=== PATIENT | male | born 1990 | race Caucasian/White ===

== ENCOUNTER → 2024-08-14 | Outpatient (CLI) | payer BC ==
[2024-08-14 15:32] VITALS: BP 135/86; PULSE 92; RESP 16; TEMP 98.1
--- NOTE | 2024-08-14 16:06 | P.SLEEP ---
History of Present Illness DATE: 08/14/2024 CONSULTATION/NEW PATIENT EVALUATION HISTORY OF PRESENT ILLNESS/SLEEP-WAKE EVALUATION: 53-year-old gentleman had b een evaluated in the sleep center for possible obstructive sleep apnea hypopnea syndrome. SLEEP SCHEDULE: Usually sleep schedule from midnight until 9 AM on weekdays and until 910 AM on weekend. FALLING ASLEEP: Patient does have difficulties with falling asleep, has TV set in bedroom. DURING SLEEP: Patient sleeps on the side and stomach position with snoring, grinding teeth, episodes of palpitations, heartburn, restless leg sweating. No history of hypnogogical hallucinations, sleep paralysis, or cataplexy. DURING THE DAY/WAKE STATE: In the morning patient wake up tired, has difficulties to pay attention, has problems with memory, concentration, irritability and anxiety.. Kirkland sleepiness scale is 7. Patient does not take naps. PAST MEDICAL HISTORY: Fatty liver, anxiety. PAST SURGICAL HISTORY: Tonsillectomy and adenoidectomy. MEDICATIONS: None. SOCIAL HISTORY: Please see below. FAMILY HISTORY: Hypertension, sleep apnea, cancer, mental illness, diabetes. REVIEW OF SYSTEMS: Snoring. No fevers. No double vision. No recent chest pain. No shortness of breath. No abdominal pain. No bleeding episodes. No blood in urine. No seizure episodes. PHYSICAL EXAMINATION: GENERAL: A pleasant patient without any distress. VITAL SIGNS: Please see below, weight 223.2 pounds, BMI 35.7. HEENT: PERRLA, EOMI. Evaluation of oropharynx showed tongue protrudes midline, low position of soft palate Mallampati 3. NECK: Supple. No JVD. Thyroid is not palpable. 18 inches in circumference. LUNGS: Clear to percussion and to auscultation. Good air exchange. No wheezing or rhonchi. HEART: S1, S2 regular. No murmurs, gallops or rubs. ABDOMEN: Soft and nontender. Bowel sounds are present. No organomegaly appreciated. EXTREMITIES: No clubbing or cyanosis. SET AND EXHIBIT DESIGNER: Awake, alert, and oriented x3. Cranial nerves 2 to 7 intact. There is no fasciculation or atrophy noted. No focal deficits observed. ASSESSMENT: 1. Snoring, low position of soft palate Mallampati 3, wide neck 18 inches in circumference. Obstructive sleep apnea hypopnea syndrome. 2. Mild obesity BMI 35.7. 3. Restless leg symptoms. 4. Possible periodic limb movements. 5 fatty liver. 6 . Episodes of anxiety. 7. Status post tonsillectomy and adenoidectomy. PLAN: 1. Home sleep apnea test for evaluation of patient's breathing during sleep. 2. Following plan after reading sleep study. 3. Preferable position during sleep on the side. 4. No driving if patient feels any sleepiness. Patient is aware of civil and criminal liability for unsafe driving. 5. Sleep hygiene with regular sleep time for at least 7.5-8 hours. 6. Watching and losing weight. Thank you very much for referring this patient for consultation. Sincerely, Dwight Baumann MD, PhD, FAASM. Diplomat of [place] [employer], Sleep Medicine Board by [place] [employer] [employer] Finishing Lab Technician of [facility] [place] cc: Yumiko Peterson MD, Treva Damon [employer] Past Medical History Past Medical History: GERD/Reflux Additional Past Medical History / Comment(s): Anxiety, diverticulosis, high liver enzymes, snoring, restless legs. History of Any Multi-Drug Resistant Organisms: None Reported Past Surgical History: Adenoidectomy, Tonsillectomy Additional Past Surgical History / Comment(s): Colonoscopy Past Psychological History: Anxiety Smoking Status: Never smoker Past Alcohol Use History: Occasional Additional Past Alcohol Use History / Comment(s): Does use tobacco pouches to chew. Past Drug Use History: None Reported - Past Family History Mother Family Medical History: Hypertension Additional Family Medical History / Comment(s): Angina, anxiety, Physical Exam Vitals: Vital Signs Temp Pulse Resp BP Pulse Ox 08/14/24 15:30 98.1 F 92 16 135/86 96 Intake and Output 08/14/24 08/14/24 08/14/24 06:59 14:59 22:59 Other: Weight 101.208 kg Sleep Note - Sleep Data ESS Total: 7 - Sleep Note Sleep Note: Temperature: 98.1 F Pulse Rate: 92 Respiratory Rate: 16 Blood Pressure: 135/86 SpO2: 96 Height: 5 ft 6.2 in Weight: 101.208 kg BMI: Neck Circumference: 18
== END ==
LOC: 3 N SLEEP 15:03
PROVIDERS: ATTEND Internal Medicine
CPT/HCPCS: 99211

== ENCOUNTER → 2024-08-27 | Outpatient (CLI) | payer BC ==
--- NOTE | 2024-08-28 10:39 | P.PCN ---
Description of Procedure: CLINICAL: A home sleep apnea test has been done for confirmation of possible obstructive sleep apnea-hypopnea syndrome. DESCRIPTION OF PROCEDURE: RESULTS: Recording time was 6 hours 47 minutes. Evaluation time was 6 hours 37 minutes. Evaluation time is sufficient for making conclusion about results of the test. Raw data of sleep recording has been reviewed and is adequate. Respiratory channel showed 7 apneas and 56 hypopneas. Apnea-hypopnea index was 8.6 per hour. Pulse rate in the range between minimum 47, maximum 101, average 64 by computer calculation. Lowest desaturation was 86%. IMPRESSION: 1. Obstructive Sleep Apnea Hypopnea Syndrome in mild range, although home sleep apnea test may underestimate severity of sleep apnea. 2. Anxiety episodes. Please see other impressions from consultation. PLAN: 1. I will see patient for follow-up visit to discuss results of the test and following plan. 2. Sleep hygiene with regular time in bed for at least 8 hours. 3. Watching and losing weight. 4. No driving if feeling any sleepiness. Thank you very much for allowing me to participate in the management of your pa tient. Sincerely, Dwight Baumann MD, PhD, FAASM Diplomat of [place] [employer] Sleep Medicine Board of [place] [employer] Communication Lecturer of [facility] [place] cc: Yumiko Peterson MD, Marisol Michael
== END ==
LOC: 3 N SLEEP 10:46
PROVIDERS: ATTEND Internal Medicine

== ENCOUNTER → 2024-10-09 | Outpatient (CLI) | payer BC ==
--- NOTE | 2024-10-09 12:37 | P.PROGSL ---
Subjective DATE: 10/09/2024 FOLLOW UP VISIT. Patient returned to sleep center for follow-up visit to discuss results of home sleep apnea test and following plan. I discussed results of home sleep apnea test in details. Test showed apnea hypopnea index 8.6 with oxygen desaturation to 86%. Snoring have been documented during the test. Gilbert sleepiness scale is increased to 12, which is indicates sleepiness. Sometimes patient takes naps for 2 hours in the middle of the day. MEDICATIONS: None During physical exam: GENERAL: A pleasant patient without any distress. VITAL SIGNS: Please see below. HEENT: PERRLA, EOMI. NECK: Supple. No JVD. LUNGS: Clear to percussion and to auscultation. Good air exchange. No wheezing or rhonchi. HEART: S1, S2 regular. ABDOMEN: Soft and nontender. EXTREMITIES: No clubbing or cyanosis. CHIEF II DISPATCHER: Awake, alert, and oriented x3. No focal deficit. Impressions: 1. Snoring, awakenings from sleep. Obstructive sleep apnea hypopnea syndrome with apnea hypopnea index 8.6 by results of home sleep apnea test, which may underestimate severity of sleep apnea, respiratory events index 17.7. Patient has symptoms of excessive daytime sleepiness Gilbert Sleepiness Scale significantly increased to 12. 2. History of anxiety. 3. Fatty liver. 4. Restless leg symptoms and possibly periodic limb movements. 5. Status post tonsillectomy and adenoidectomy. Plan: 1. Patient will be started on treatment with AutoPap and should use equipment every night for the whole night 2. Sleep hygiene with regular time in bed for at least 8 hours. 3. I will see patient for follow-up visit to evaluate clinical response on treatment, compliance with treatment and [place] adjustments related to mask fitting pressure and humidification. 4. Precautions related to driving. No driving if feel any sleepiness. Patient is aware about civil and criminal liability for unsafe driving, promised to follow recommendations. 5. Follow up visit in 1-3 months after patient will get CPAP unit. Thank you very much for allowing me to participate in the management of your patient. Dwight Baumann MD, PhD, FAASM. Diplomat of [place] [employer], Sleep Medicine Board by [place] [employer] Orchid Transplanter of [facility] [place] cc: Yumiko Peterson MD
== END ==
LOC: 3 N SLEEP 11:40
PROVIDERS: ATTEND Internal Medicine
DX: G47.33 Obstructive sleep apnea (adult) (pediatric) (principal); G47.10 Hypersomnia, unspecified; F41.9 Anxiety disorder, unspecified; K76.0 Fatty (change of) liver, not elsewhere classified; G25.81 Restless legs syndrome; Z98.890 Other specified postprocedural states; Z90.89 Acquired absence of other organs
CPT/HCPCS: 99212

== ENCOUNTER → 2024-10-16 | Outpatient (CLI) | payer BC ==
--- NOTE | 2024-10-16 10:14 | CA ---
Exercise Stress Test Report Name: Booker Kitchen Exam Date: 10/16/2024 09:07 Exam Location: [facility] Stress Ht (in): 66 Wt (lb): 210 BSA: 2.04 Ordering Phys: Yumiko Peterson MD Referring Phys: Mraisol Tilley Technologist: Saul Stewart Age: 33 Gender: M : 1990 Procedure CPT: Indications: R55 Syncope ICD-10 Codes: Patient History: Medications: omeperazole Meds past 24 hrs: Pretest Chest Pain: STRESS TEST Federico Protocol Exercise Duration (min:sec): 09:[address] Depressions (mm): Angina Score: Malik Score: Resting HR (bpm): 105 Peak HR (bpm): 162 Resting BP (mmHg): 133 / 88 Peak BP (mmHg): 212 / 69 MPHR: 186 Target HR: 158 % MPHR: 87 METS: 11.2 Total Dose: Peak Dose: Atropine: Double Product: 96713 BP Response: Stress Termination: Reached target heart rate Stress Symptoms: No chest pain or symptoms Stress Summary: Echo patient exercised on a Federico protocol for 9 minutes 39 seconds achieving 11.2 METS. Patient was able to achieve 87% of age-predicted maximal heart rate. Patient not report any substernal chest pressure or significant shortness of breath with treadmill exercise protocol. The treadmill protocol was terminated because of achieving heart rate. ECG ANALYSIS Resting ECG: Normal sinus rhythm Stress ECG: No significant ST-T wave changes concerning of ischemia. No significant ectopic beats or arrhythmias noted during the stress test. CONCLUSIONS Overall normal treadmill echo stress test Good exercise tolerance achieving 11.2 METS Nonischemic ECG response to treadmill exercise Slightly hypertensive response to exercise, could be related to deconditioning. Dr Pradip Estrella (Electronically Signed) Final Date: 16 October 2024 10:13
== END | disposition home or self-care (01) ==
LOC: RADNMMAIN 08:26
PROVIDERS: ATTEND Family Medicine
DX: R55 Syncope and collapse (principal); I10 Essential (primary) hypertension
CPT/HCPCS: 93017

== ENCOUNTER → 2024-11-20 | Outpatient (CLI) | payer BC ==
--- NOTE | 2024-11-21 17:33 | US ---
EXAMINATION TYPE: US Aorta Screening DATE OF EXAM: 11/20/2024 COMPARISON: NONE CLINICAL INDICATION: Male, 33 years old with history of R22.1 Pulsatile mass; Pulsatile mass x 1 year . TECHNIQUE: Multiple sonographic images of the abdominal aorta are obtained with grayscale and color D oppler imaging. FINDINGS: EXAM MEASUREMENTS: Abdominal Aorta: Proximal: 2.2 x 2.2 cm. Mid: Obscured Distal: 1.7 x 1.6 cm. Bifurcation: Right Iliac: 1.0 x 1.2 cm. Left Iliac: 1.1 x 1.3 cm. RN CLINICAL DOCUMENTATION SPECIALIST NOTES: *Exam is limited due to gas. Mid aorta was obscured by gas. Portions seen appear wnl. IMPRESSION: No evidence for aortic aneurysm. Correlate with CT abdomen pelvis with IV contrast with palpable francisco javier er placement. [facility], , 11/21/2024 5:31 PM
--- NOTE | 2024-11-21 17:36 | US ---
EXAMINATION TYPE: US liver DATE OF EXAM: 11/20/2024 COMPARISON: NONE CLINICAL INDICATION: Male, 33 years old with history of R94.5 ABNORMAL LIVER FUNCTION TEST; Abnormal liver enzymes. TECHNIQUE: Grayscale and color Doppler imaging of the right upper quadrant. FINDINGS: EXAM MEASUREMENTS: Liver Length: 17.1 cm Gallbladder Wall: 0.25 cm CBD: Obscured Right Kidney: 11.7 x 5.3 x 5.0 cm CULTURE MANAGER NOTES: Exam is limited due to gas. Pancreas: Not well visualized. Extremely limited by gas. Liver: Measures upper limits. Appears very coarse in echotexture. Increased attenuation. Indistinct, hypoechoic area seen adjacent to the gallbladder: 1.0 x 1.0 x 1.0 cm. Gallbladder: Internal echoes versus artifact noted. Evidence for sonographic Moreno's sign: No CBD: Obscured Right Kidney: No hydronephrosis or masses seen IMPRESSION: 1. No evidence for acute process. 2. Hepatic steatosis focal fatty sparing next to what fossa. [facility], , 11/21/2024 5:34 PM
== END | disposition home or self-care (01) ==
LOC: RADUSWWP 07:03
PROVIDERS: ATTEND Family Medicine
DX: K76.0 Fatty (change of) liver, not elsewhere classified (principal); R22.1 Localized swelling, mass and lump, neck; R94.5 Abnormal results of liver function studies
CPT/HCPCS: 76705; 76706

== ENCOUNTER → 2025-02-26 | Outpatient (CLI) | payer BC ==
--- NOTE | 2025-02-26 16:41 | CT ---
EXAMINATION TYPE: CT abdomen pelvis w con CT DLP: 1562.2 mGycm, Automated exposure control for dose reduction was used. DATE OF EXAM: 02/26/2025 4:33 PM COMPARISON: Ultrasound liver 11/20/2024, aortic ultrasound 11/20/2024 CLINICAL INDICATION:Male, 34 years old with history of R19.09 Epigastric pelvic mass; C/o spasms and pain in lower chest/upper abdomen as well as some lower abdominal pain. TECHNIQUE: Standard CT of the abdomen and pelvis following the administration of 100 cc of Isovue 3 00 IV contrast material and oral contrast. Coronal and sagittal reformats were performed. FINDINGS: LOWER CHEST: Right lower lobe pleural-based 5.7 mm pulmonary nodule (series 4, image 4). ABDOMEN LIVER: Diffusely hypoattenuating parenchyma. No focal lesion. Noncirrhotic morphology. GALLBLADDER AND BILE DUCTS: Unremarkable. PANCREAS: Unremarkable. SPLEEN: Unremarkable. ADRENAL GLANDS: Unremarkable. KIDNEYS AND URETERS: No evidence of hydronephrosis or renal calculus. The kidneys enhance symmetrical ly. Contrast is demonstrated within both collecting systems on the delayed phase. PELVIS BLADDER: Unremarkable REPRODUCTIVE: Unremarkable. ABDOMEN & PELVIS STOMACH AND BOWEL: Stomach is unremarkable. Diverticula involving the third portion of the duodenum. Enteric contrast reaches the descending colon. Distal colonic diverticulosis without evidence for acu te diverticulitis. No focal bowel wall thickening or surrounding inflammatory changes. The appendix i s within normal limits. No evidence of bowel obstruction. PERITONEUM: No evidence of pneumoperitoneum or free fluid. VASCULATURE: No evidence of aortic aneurysm. MUSCULOSKELETAL: No acute osseous abnormalities LYMPH NODES: No evidence for lymphadenopathy. SOFT TISSUE/ABDOMINAL WALL: Small fat filled umbilical hernia. Small fat filled bilateral inguinal he rnias. IMPRESSION: 1. No CT evidence for acute abdominal/pelvic process. 2. Colonic diverticulosis without evidence for acute diverticulitis. 3. Small fat filled umbilical and bilateral inguinal hernias. 4. Hepatic steatosis. 5. Right lower lobe pleural-based 5.7 mm pulmonary nodule. According to Fleischner criteria, in a low -risk patient no follow-up is recommended. In a high-risk patient consider optional CT chest in 12 mo nths. [facility], , 02/26/2025 4:39 PM
== END | disposition home or self-care (01) ==
LOC: RADCTMAIN 14:12
PROVIDERS: ATTEND Family Medicine
DX: K76.0 Fatty (change of) liver, not elsewhere classified (principal); K57.30 Diverticulosis of large intestine without perforation or abscess without bleeding; K40.20 Bilateral inguinal hernia, without obstruction or gangrene, not specified as recurrent; R91.1 Solitary pulmonary nodule
CPT/HCPCS: 74177; Q9967